=== PATIENT | female | born 1990 ===

== ENCOUNTER 2017-02-08 18:34 | Emergency (ER) | payer SELFPAY ==
--- NOTE | 2017-02-10 18:52 | ER ---
ADMIT: 02/08/2017 RM/LOC: ER [facility] MR#: [id number] [id number] [place] [id number] Emergency Room Report SEX: F AGE: 26 : 1990 DATE: 02/08/2017 ADDENDUM: This patient comes into the ER because 2 weeks ago, she had a wart burned off using liquid nitrogen. Now, she notices that it is a purplish color and the skin is dry and she wants to make sure it is not infected. On physical exam, she does have a healing wound, does not appear to be any infection. It looks like she had a blister there, popped it, and there was maybe a little bleeding behind that skin. Otherwise, no signs of cellulitis, and she has good range of motion of that digit. Please see my T-sheet. JESUS Huffman / Demarco Barnes MD / katelyn JOB #: [id number] CC: Sae Robbins MD, Attending Physician Vamsi Araiza MD, Family Physician
== END 2017-02-08 23:40 | disposition home or self-care (01) ==
LOC: ER 18:34
DX: B07.9 Viral wart, unspecified (principal)